=== PATIENT | male | born 1940 | race Caucasian/White ===

== ENCOUNTER 2022-05-19 16:02 | Emergency (ER) | payer MEDICARE, OTHER ==
[2022-05-19] MEDS ORDERED: Sodium Chloride 0.9% 10 ML Syringe FLUSH PRN (16:13)
[2022-05-19 17:02] LABS: ANION GAP 10.6 mEq/L (7-13)
== END 2022-05-19 19:10 | disposition home or self-care (01) ==
LOC: DL.ED 16:02
DX: B34.9 Viral infection, unspecified (principal); I10 Essential (primary) hypertension; Z20.822 Contact with and (suspected) exposure to COVID-19; Z79.82 Long term (current) use of aspirin; Z79.899 Other long term (current) drug therapy; Z90.49 Acquired absence of other specified parts of digestive tract
CPT/HCPCS: 36415; 71045; 80053; 80162; 81001; 82607; 83605; 83735; 83880; 84100; 84443; 84484; 85025; 85610; 86140; 87040; 87086; 93005; 99284; J3490; U0002

== ENCOUNTER 2023-03-03 08:57 | Emergency (ER) | payer MEDICARE, OTHER ==
[2023-03-03] MEDS ORDERED: fentaNYL 100 MCG/2 ML SDV IVPUSH ONE (09:47)
[2023-03-03] MEDS ORDERED: Sodium Chloride 0.9% 10 ML Syringe FLUSH PRN (09:47)
[2023-03-03] MEDS ORDERED: Ondansetron 4 MG/2 ML SDV IV ONE (09:47)
[2023-03-03] MEDS ORDERED: Sodium Chloride 0.9% 1,000 ML IV SCH (10:00)
[2023-03-03] MEDS ORDERED: Ketorolac 30 MG/ML SDV IVPUSH ONE (11:06)
[2023-03-03] MEDS ORDERED: Acetaminophen 500 MG Tab PO ONE (11:07)
== END 2023-03-03 11:22 | disposition home or self-care (01) ==
LOC: DL.ED 08:57
DX: S43.004A Unspecified dislocation of right shoulder joint, initial encounter (principal); E78.00 Pure hypercholesterolemia, unspecified; I10 Essential (primary) hypertension; E03.9 Hypothyroidism, unspecified; I25.10 Atherosclerotic heart disease of native coronary artery without angina pectoris; Z79.82 Long term (current) use of aspirin; Z79.899 Other long term (current) drug therapy; W05.1XXA Fall from non-moving nonmotorized scooter, initial encounter
CPT/HCPCS: 01620; 23650; 23655; 29125; 73020; 73030; 73060; 96374; 96375; 99152; 99153; 99283; A9270; J1885; J2405; J3010; J7030; J3490

== ENCOUNTER 2023-08-15 12:01 | Emergency (ER) | payer MEDICARE, OTHER ==
[2023-08-15 12:31] LABS: BASOPHILS PERCENT AUTO 0.3 % (0.0-1.0); EOSINOPHILS PERCENT AUTO 0.8 % (1.0-3.0); HEMATOCRIT 30.2 % (40.0-54.0); HEMOGLOBIN 10.4 g/dL (14.0-18.0); LYMPHOCYTES PERCENT AUTO 11.2 % (20.5-50.1); MEAN CORPUSCULAR HEMOGLOBIN 37.8 pg (27.0-34.0); MEAN CORPUSCULAR HGB CONC 34.4 g/dL (33.0-35.0); MEAN CORPUSCULAR VOLUME 109.8 fL (80-100); MONOCYTES PERCENT AUTO 5.7 % (2-8); PLATELET COUNT,PLT 151 10^3/uL (150-450); RED BLOOD CELL COUNT 2.75 10^6/uL (4.6-6.2); WHITE BLOOD CELL COUNT,WBC 9.2 10^3/uL (5.0-10.0)
[2023-08-15] MEDS: Ondansetron 4 MG/2 ML SDV IVPUSH ONE (12:32)
[2023-08-15] MEDS: Morphine 4 MG/ML Syringe IVPUSH ONE (12:32)
[2023-08-15 12:48] LABS: A/G RATIO 1.3; ALANINE AMINOTRANSFERASE,ALT 21 U/L (16-63); ALBUMIN 3.9 g/dL (3.4-5.0); ALKALINE PHOSPHATASE 87 U/L (46-116); ANION GAP 14.9 mEq/L (7-13); ASPARTATE AMNIOTRANSFERASE,AST 22 U/L (15-37); BILIRUBIN TOTAL 1.2 mg/dL (0.2-1.0); BLOOD UREA NITROGEN,BUN 14 mg/dL (7-18); BUN/CREATININE RATIO 21.2 (No establ ref range); CALCIUM 8.7 mg/dL (8.5-10.1); CARBON DIOXIDE,CO2 28 mmol/L (21-32); CHLORIDE,CL 103 mmol/L (98-107); CREATININE 0.66 mg/dL (0.70-1.30); ESTIMATED GFR 92 mL/min (>=60); GLUCOSE RANDOM 104 mg/dL (70-99); POTASSIUM,K 3.9 mmol/L (3.5-5.1); SODIUM,NA 142 mmol/L (136-145)
[2023-08-15] MEDS: Sodium Chloride 0.9% 1,000 ML IV ONE (13:42)
== END 2023-08-15 14:35 | disposition critical access hospital (66) ==
LOC: DL.ED 12:01
DX: S72.001A Fracture of unspecified part of neck of right femur, initial encounter for closed fracture (principal); I25.10 Atherosclerotic heart disease of native coronary artery without angina pectoris; E78.00 Pure hypercholesterolemia, unspecified; I10 Essential (primary) hypertension; E03.9 Hypothyroidism, unspecified; Z79.82 Long term (current) use of aspirin
CPT/HCPCS: 36415; 80053; 85025; 93005; 93010; 96361; 96374; 96375; 99284; 99285-25; J2270; J2405; J7030

== ENCOUNTER 2023-12-05 15:27 | Inpatient (IN) | payer MEDICARE, OTHER ==
[2023-12-05] MEDS: Lactated Ringers 1,000 ML IV ONE ×2 (16:36→18:19)
[2023-12-05] MEDS: Piperacillin/Tazobactam 4.5 GM in Sodium Chloride 0.9% 100 ML IV ONE (16:36)
[2023-12-05 16:47] LABS: BASOPHILS PERCENT AUTO 0.3 % (0.0-1.0); EOSINOPHILS PERCENT AUTO 0.1 % (1.0-3.0); HEMOGLOBIN 9.3 g/dL (14.0-18.0); LYMPHOCYTES PERCENT AUTO 2.4 % (20.5-50.1); MEAN CORPUSCULAR HEMOGLOBIN 38.4 pg (27.0-34.0); MEAN CORPUSCULAR HGB CONC 33.2 g/dL (33.0-35.0); MEAN CORPUSCULAR VOLUME 115.7 fL (80-100); MONOCYTES PERCENT AUTO 6.1 % (2-8); NEUTROPHILS PERCENT AUTO 91.1 % (42.2-75.2); PLATELET COUNT,PLT 145 10^3/uL (150-450); RED BLOOD CELL COUNT 2.42 10^6/uL (4.6-6.2); WHITE BLOOD CELL COUNT,WBC 14.6 10^3/uL (5.0-10.0)
[2023-12-05 16:55] LABS: A/G RATIO 1.3; ANION GAP 14.3 mEq/L (7-13); BILIRUBIN TOTAL 2.4 mg/dL (0.2-1.0); BUN/CREATININE RATIO 16.7 (No establ ref range); C-REACTIVE PROTEIN 4.84 ng/dL (<=0.50); CALCIUM 8.1 mg/dL (8.5-10.1); CREATININE 0.84 mg/dL (0.70-1.30); EST CRCL DRUG DOSING (CG) 59.07 mL/min; POTASSIUM,K 4.3 mmol/L (3.5-5.1); PROTEIN TOTAL,TP 7.1 g/dL (6.4-8.2)
[2023-12-05 16:58] LABS: LACTIC ACID 1.5 mmol/L (0.4-2.0)
[2023-12-05] MEDS: Sodium Chloride 0.9% 10 ML Syringe FLUSH PRN (17:45)
[2023-12-05] MEDS: HYDROmorphone 0.5 MG/0.5 ML Syringe IVPUSH ONE (17:45)
[2023-12-05] MEDS: Ondansetron 4 MG/2 ML SDV IV ONE (17:45)
[2023-12-05] MEDS: methylPREDNISolone Sodium Succinate 125 MG/2 ML SDV IVPUSH ONE (17:45)
[2023-12-05 17:51] LABS: APPEARANCE,URINE CLEAR (CLEAR); BILIRUBIN,URINE NEGATIVE (NEGATIVE); COLOR,URINE YELLOW (YELLOW); GLUCOSE,URINE NEGATIVE (NEGATIVE); KETONES,URINE NEGATIVE (NEGATIVE); LEUKOCYTE ESTERASE,URINE NEGATIVE (NEGATIVE); NITRITE,URINE NEGATIVE (NEGATIVE); OCCULT BLOOD,URINE NEGATIVE (NEGATIVE); PH,URINE 5.5 (5.0-9.0); PROTEIN,URINE NEGATIVE (NEGATIVE); UROBILINOGEN,URINE 0.2 mg/dL (0.2-1.0)
[2023-12-05] MEDS ORDERED: Ondansetron 4 MG/2 ML SDV IVPUSH PRN (18:25)
[2023-12-05] MEDS ORDERED: Albuterol/Ipratropium 3.0-0.5 MG/3 ML Neb Soln NEB PRN (18:25)
[2023-12-05] MEDS ORDERED: Acetaminophen 325 MG Tab PO PRN (18:25)
[2023-12-05] MEDS ORDERED: methylPREDNISolone Sodium Succinate 40 MG/1 ML SDV IVPUSH SCH (18:45)
[2023-12-05] MEDS ORDERED: Lactated Ringers 1,000 ML IV SCH (19:00)
[2023-12-05] MEDS: Zolpidem 5 MG Tab PO PRN (20:55)
[2023-12-06] MEDS: Piperacillin/Tazobactam 3.375 GM in Sodium Chloride 0.9% 100 ML IV SCH (00:09)
[2023-12-06] MEDS: methylPREDNISolone Sodium Succinate 40 MG/1 ML SDV IVPUSH SCH (00:09)
[2023-12-06 06:44] LABS: HEMATOCRIT 26.3 % (40.0-54.0); HEMOGLOBIN 8.6 g/dL (14.0-18.0); MEAN CORPUSCULAR HEMOGLOBIN 38.1 pg (27.0-34.0); MEAN CORPUSCULAR HGB CONC 32.7 g/dL (33.0-35.0); MEAN CORPUSCULAR VOLUME 116.4 fL (80-100); PLATELET COUNT,PLT 119 10^3/uL (150-450); RED BLOOD CELL COUNT 2.26 10^6/uL (4.6-6.2); WHITE BLOOD CELL COUNT,WBC 10.5 10^3/uL (5.0-10.0)
[2023-12-06 06:46] LABS: ANION GAP 13.4 mEq/L (7-13); CALCIUM 8.3 mg/dL (8.5-10.1); CREATININE 0.9 mg/dL (0.70-1.30); EST CRCL DRUG DOSING (CG) 55.14 mL/min; POTASSIUM,K 4.4 mmol/L (3.5-5.1)
[2023-12-06 07:32] LABS: BASOPHILS PERCENT AUTO 0.3 % (0.0-1.0); LYMPHOCYTES PERCENT AUTO 2.9 % (20.5-50.1); MONOCYTES PERCENT AUTO 0.7 % (2-8); NEUTROPHILS PERCENT AUTO 96.1 % (42.2-75.2)
[2023-12-06 07:33] LABS: BAND PERCENT MAN 6 %; SEG NEUTROPHILS PERCENT MAN 90 % (42-75)
[2023-12-06 07:34] LABS: LYMPHOCYTES PERCENT MAN 3 % (20-50)
[2023-12-06] MEDS ORDERED: Piperacillin/Tazobactam 4.5 GM in Sodium Chloride 0.9% 100 ML IV SCH (08:15)
[2023-12-06] MEDS: Enoxaparin 40 MG/0.4 ML Syringe SUBCUT SCH (08:39)
[2023-12-06] MEDS: HYDROmorphone 0.5 MG/0.5 ML Syringe IVPUSH PRN (08:47)
[2023-12-06] MEDS: Piperacillin/Tazobactam 4.5 GM in Sodium Chloride 0.9% 100 ML IV SCH (14:11)
[2023-12-06] MEDS ORDERED: Levothyroxine 150 MCG Tab PO SCH (14:45)
[2023-12-07 06:36] LABS: BASOPHILS PERCENT AUTO 0.2 % (0.0-1.0); HEMATOCRIT 23.6 % (40.0-54.0); HEMOGLOBIN 7.7 g/dL (14.0-18.0); MEAN CORPUSCULAR HEMOGLOBIN 37.9 pg (27.0-34.0); MEAN CORPUSCULAR HGB CONC 32.6 g/dL (33.0-35.0); MEAN CORPUSCULAR VOLUME 116.3 fL (80-100); MONOCYTES PERCENT AUTO 1.5 % (2-8); NEUTROPHILS PERCENT AUTO 93.3 % (42.2-75.2); PLATELET COUNT,PLT 89 10^3/uL (150-450); RED BLOOD CELL COUNT 2.03 10^6/uL (4.6-6.2); WHITE BLOOD CELL COUNT,WBC 4.8 10^3/uL (5.0-10.0)
[2023-12-07 06:53] LABS: ANION GAP 13.1 mEq/L (7-13); CALCIUM 8.2 mg/dL (8.5-10.1); CREATININE 0.87 mg/dL (0.70-1.30); EST CRCL DRUG DOSING (CG) 57.04 mL/min; POTASSIUM,K 4.1 mmol/L (3.5-5.1)
[2023-12-07] MEDS ORDERED: DIPYRIDAMOLE PO SCH (09:00)
[2023-12-07] MEDS ORDERED: [UNRECOGNIZED DRUG - OTHER] PO SCH (09:00)
[2023-12-07] MEDS ORDERED: Ferrous Sulfate 325 MG Tab PO SCH (09:00)
[2023-12-07] MEDS ORDERED: ASPIRIN PO SCH (09:00)
[2023-12-07] MEDS: atorvaSTATin 10 MG Tab PO SCH (09:31)
[2023-12-07] MEDS: Aspirin 81 MG Tab.EC PO SCH (09:32)
[2023-12-07] MEDS: Digoxin 250 MCG Tab PO SCH (09:32)
[2023-12-07] MEDS: Diltiazem 180 MG Cap.CD PO SCH (09:32)
[2023-12-07] MEDS: Diltiazem 120 MG Cap.CD PO SCH (09:33)
[2023-12-07] MEDS: Folic Acid 1 MG Tab PO SCH (09:33)
[2023-12-07] MEDS: Ferrous Sulfate 325 MG Tab PO SCH (09:36)
[2023-12-07] MEDS: Tamsulosin 0.4 MG Cap.ER PO SCH (09:37)
[2023-12-07] MEDS: Pantoprazole 40 MG Tab.CR PO SCH (09:37)
[2023-12-08 06:38] LABS: HEMOGLOBIN 7.9 g/dL (14.0-18.0); MEAN CORPUSCULAR HEMOGLOBIN 38.5 pg (27.0-34.0); MEAN CORPUSCULAR HGB CONC 32.9 g/dL (33.0-35.0); MEAN CORPUSCULAR VOLUME 117.1 fL (80-100); PLATELET COUNT,PLT 76 10^3/uL (150-450); RED BLOOD CELL COUNT 2.05 10^6/uL (4.6-6.2); WHITE BLOOD CELL COUNT,WBC 3.2 10^3/uL (5.0-10.0)
[2023-12-08 06:44] LABS: BASOPHILS PERCENT AUTO 0.3 % (0.0-1.0); LYMPHOCYTES PERCENT AUTO 4.4 % (20.5-50.1); MONOCYTES PERCENT AUTO 2.5 % (2-8); NEUTROPHILS PERCENT AUTO 92.8 % (42.2-75.2)
[2023-12-08 07:33] LABS: LYMPHOCYTES PERCENT MAN 5 % (20-50); MONOCYTES PERCENT MAN 2 % (2-8); SEG NEUTROPHILS PERCENT MAN 93 % (42-75)
[2023-12-08 07:40] LABS: CALCIUM 8.1 mg/dL (8.5-10.1); CREATININE 0.88 mg/dL (0.70-1.30); EST CRCL DRUG DOSING (CG) 56.39 mL/min; POTASSIUM,K 4.1 mmol/L (3.5-5.1)
[2023-12-08] MEDS ORDERED: Take Home: Amoxicillin/Clavulanate K 875-125 MG Tab, 6 Tab Pack PO ONE (08:32)
[2023-12-08 08:47] LABS: ANION GAP 11.1 mEq/L (7-13)
== END 2023-12-08 11:10 | disposition home or self-care (01) | DRG 386 ==
LOC: DL.ED 15:27 → DL.MS 17:33
PROVIDERS: ADMIT Internal Medicine; ATTEND Internal Medicine
DX: K51.819 Other ulcerative colitis with unspecified complications (principal); A09 Infectious gastroenteritis and colitis, unspecified; J90 Pleural effusion, not elsewhere classified; Z66 Do not resuscitate; H91.90 Unspecified hearing loss, unspecified ear; H54.7 Unspecified visual loss; I48.91 Unspecified atrial fibrillation; I25.10 Atherosclerotic heart disease of native coronary artery without angina pectoris; E78.00 Pure hypercholesterolemia, unspecified; I10 Essential (primary) hypertension; E03.9 Hypothyroidism, unspecified; M19.90 Unspecified osteoarthritis, unspecified site; M10.9 Gout, unspecified; N40.0 Benign prostatic hyperplasia without lower urinary tract symptoms; N32.89 Other specified disorders of bladder; D64.9 Anemia, unspecified; Z98.890 Other specified postprocedural states; Z79.899 Other long term (current) drug therapy; Z79.82 Long term (current) use of aspirin; Z90.49 Acquired absence of other specified parts of digestive tract; Z95.0 Presence of cardiac pacemaker; Z86.73 Personal history of transient ischemic attack (TIA), and cerebral infarction without residual deficits
CPT/HCPCS: 36415; 80053; 80162; 83605; 83690; 84145; 85025; 86140; 87040 ×2; 96365; 99284; 99285; J2543; J3490; J7120; 51798; 80048; 81003; 97161-GP; 97165-GO; 99223; 99232; 99233; 99239; A9270-GY; J1170; J1650; J2405; J2920; J2930

== ENCOUNTER 2024-01-22 20:39 | Emergency (ER) | payer MEDICARE, OTHER | END 2024-01-22 22:50 | disposition home or self-care (01) | LOC: DL.ED 20:39 | DX: S92.101A Unspecified fracture of right talus, initial encounter for closed fracture (principal); I10 Essential (primary) hypertension; I25.10 Atherosclerotic heart disease of native coronary artery without angina pectoris; I48.91 Unspecified atrial fibrillation; E78.00 Pure hypercholesterolemia, unspecified; Z79.82 Long term (current) use of aspirin; Z79.890 Hormone replacement therapy; Z79.899 Other long term (current) drug therapy; Z86.73 Personal history of transient ischemic attack (TIA), and cerebral infarction without residual deficits; Z90.49 Acquired absence of other specified parts of digestive tract | CPT/HCPCS: 73610-RT; 99283 ==

== ENCOUNTER 2024-06-20 16:33 | Emergency (ER) | payer MEDICARE, OTHER ==
[2024-06-20] MEDS ORDERED: Sodium Chloride 0.9% 10 ML Syringe FLUSH PRN (17:22)
[2024-06-20] MEDS: Sodium Chloride 0.9% 500 ML IV SCH (17:35)
[2024-06-20 17:37] LABS: HEMATOCRIT 26.6 % (40.0-54.0); MEAN CORPUSCULAR HEMOGLOBIN 38.3 pg (27.0-34.0); MEAN CORPUSCULAR HGB CONC 33.8 g/dL (33.0-35.0); MEAN CORPUSCULAR VOLUME 113.2 fL (80-100); PLATELET COUNT,PLT 153 10^3/uL (150-450); RED BLOOD CELL COUNT 2.35 10^6/uL (4.6-6.2); WHITE BLOOD CELL COUNT,WBC 8.7 10^3/uL (5.0-10.0)
[2024-06-20] MEDS: Ondansetron 4 MG/2 ML SDV IVPUSH ONE (17:37)
[2024-06-20 17:38] LABS: BASOPHILS PERCENT AUTO 0.5 % (0.0-1.0); EOSINOPHILS PERCENT AUTO 0.6 % (1.0-3.0); LYMPHOCYTES PERCENT AUTO 12.3 % (20.5-50.1); MONOCYTES PERCENT AUTO 6.3 % (2-8); NEUTROPHILS PERCENT AUTO 80.3 % (42.2-75.2)
[2024-06-20 17:54] LABS: ALANINE AMINOTRANSFERASE,ALT 34 U/L (16-63); ALBUMIN 3.4 g/dL (3.4-5.0); ALKALINE PHOSPHATASE 108 U/L (46-116); ANION GAP 13.4 mEq/L (7-13); ASPARTATE AMNIOTRANSFERASE,AST 21 U/L (15-37); BLOOD UREA NITROGEN,BUN 16 mg/dL (7-18); BUN/CREATININE RATIO 15.7 (No establ ref range); C-REACTIVE PROTEIN 2.96 ng/dL (<=0.50); CALCIUM 8.5 mg/dL (8.5-10.1); CARBON DIOXIDE,CO2 27 mmol/L (21-32); CHLORIDE,CL 102 mmol/L (98-107); CREATININE 1.02 mg/dL (0.70-1.30); EOSINOPHILS PERCENT MAN 2 % (1-3); GLUCOSE RANDOM 171 mg/dL (70-99); LYMPHOCYTES PERCENT MAN 11 % (20-50); MAGNESIUM 1.8 mg/dL (1.8-2.4); MONOCYTES PERCENT MAN 5 % (2-8); POTASSIUM,K 3.4 mmol/L (3.5-5.1); PROTEIN TOTAL,TP 6.7 g/dL (6.4-8.2); SEG NEUTROPHILS PERCENT MAN 82 % (42-75); SODIUM,NA 139 mmol/L (136-145)
[2024-06-20 17:55] LABS: ESTIMATED GFR 72 mL/min (>=60)
[2024-06-20 17:59] LABS: LACTIC ACID 1.4 mmol/L (0.4-2.0)
[2024-06-20] MEDS: Iopamidol 612 MG/ML 100 ML Bottle IVPUSH ONE (18:12)
[2024-06-20] MEDS ORDERED: Take Home: Potassium Chloride 10 MEQ Tab, 10 Tab Pack PO ONE (19:30)
[2024-06-20] MEDS ORDERED: Take Home: Ondansetron 4 MG Tab.DIS, 5 Tab Pack PO ONE (19:30)
== END 2024-06-20 19:56 | disposition home or self-care (01) ==
LOC: DL.ED 16:33
DX: K52.9 Noninfective gastroenteritis and colitis, unspecified (principal); R79.82 Elevated C-reactive protein (CRP); I25.10 Atherosclerotic heart disease of native coronary artery without angina pectoris; I48.91 Unspecified atrial fibrillation; I10 Essential (primary) hypertension; E78.00 Pure hypercholesterolemia, unspecified; M19.90 Unspecified osteoarthritis, unspecified site; E03.9 Hypothyroidism, unspecified; Z86.73 Personal history of transient ischemic attack (TIA), and cerebral infarction without residual deficits; Z90.49 Acquired absence of other specified parts of digestive tract; Z79.82 Long term (current) use of aspirin; Z79.890 Hormone replacement therapy; Z79.52 Long term (current) use of systemic steroids; Z79.899 Other long term (current) drug therapy
CPT/HCPCS: 74177; 80053; 83605; 83735; 85025; 86140; 87428; 96361; 96374; 99284; J2405; J7040; Q9967

== ENCOUNTER 2024-06-24 23:08 | Emergency (ER) | payer MEDICARE, OTHER ==
[2024-06-24] MEDS ORDERED: Sodium Chloride 0.9% 10 ML Syringe FLUSH PRN (23:19)
[2024-06-24 23:33] LABS: HEMATOCRIT 26.5 % (40.0-54.0); HEMOGLOBIN 8.6 g/dL (14.0-18.0); MEAN CORPUSCULAR HEMOGLOBIN 37.1 pg (27.0-34.0); MEAN CORPUSCULAR HGB CONC 32.5 g/dL (33.0-35.0); MEAN CORPUSCULAR VOLUME 114.2 fL (80-100); PLATELET COUNT,PLT 192 10^3/uL (150-450); RED BLOOD CELL COUNT 2.32 10^6/uL (4.6-6.2); WHITE BLOOD CELL COUNT,WBC 13.8 10^3/uL (5.0-10.0)
[2024-06-24] MEDS ORDERED: Naloxone 2 MG/2 ML Syringe IVPUSH PRN (23:34)
[2024-06-24 23:36] LABS: BASOPHILS PERCENT AUTO 0.7 % (0.0-1.0); EOSINOPHILS PERCENT AUTO 0.5 % (1.0-3.0); LYMPHOCYTES PERCENT AUTO 7.4 % (20.5-50.1); MONOCYTES PERCENT AUTO 5.2 % (2-8); NEUTROPHILS PERCENT AUTO 86.2 % (42.2-75.2)
[2024-06-24] MEDS: Ondansetron 4 MG/2 ML SDV IVPUSH ONE (23:53)
[2024-06-24] MEDS: fentaNYL 100 MCG/2 ML SDV IVPUSH ONE (23:53)
[2024-06-25 00:05] LABS: BAND PERCENT MAN 8 %; EOSINOPHILS PERCENT MAN 2 % (1-3); LYMPHOCYTES PERCENT MAN 8 % (20-50); MONOCYTES PERCENT MAN 3 % (2-8); SEG NEUTROPHILS PERCENT MAN 79 % (42-75)
[2024-06-25 00:23] LABS: ANION GAP 14.4 mEq/L (7-13); BILIRUBIN TOTAL 1.4 mg/dL (0.2-1.0); FOLIC ACID 19.7 ng/mL (8.6-58.9); POTASSIUM,K 4.4 mmol/L (3.5-5.1); PROTEIN TOTAL,TP 6.8 g/dL (6.4-8.2)
[2024-06-25 00:34] LABS: A/G RATIO 1.19; ALBUMIN 3.7 g/dL (3.4-5.0); BUN/CREATININE RATIO 12.1 (No establ ref range); C-REACTIVE PROTEIN 2.84 ng/dL (<=0.50); CALCIUM 8.7 mg/dL (8.5-10.1); CREATININE 0.91 mg/dL (0.70-1.30); EST CRCL DRUG DOSING (CG) 54.53 mL/min; MAGNESIUM 1.9 mg/dL (1.8-2.4)
[2024-06-25] MEDS ORDERED: Naloxone 2 MG/2 ML Syringe IVPUSH PRN (00:49)
[2024-06-25] MEDS: Morphine 2 MG/ML SYRINGE IVPUSH ONE ×2 (00:53→02:29)
[2024-06-25] MEDS: Iopamidol 612 MG/ML 100 ML Bottle IVPUSH ONE (01:11)
[2024-06-25] MEDS: Sodium Chloride 0.9% 500 ML IV ONE (01:46)
[2024-06-25] MEDS: Ondansetron 4 MG/2 ML SDV IVPUSH ONE (02:10)
[2024-06-25] MEDS: methylPREDNISolone Sodium Succinate 40 MG/1 ML SDV IVPUSH ONE (02:11)
[2024-06-25] MEDS: Ciprofloxacin in D5W 400 MG in Premix Bag 1 BAG IV ONE (02:14)
[2024-06-25] MEDS: metroNIDAZOLE/Normal Saline 500 MG in Premix Bag 1 BAG IV ONE (02:30)
== END 2024-06-25 02:54 ==
LOC: DL.ED 23:08
DX: K51.819 Other ulcerative colitis with unspecified complications (principal); K56.600 Partial intestinal obstruction, unspecified as to cause; A09 Infectious gastroenteritis and colitis, unspecified; D72.825 Bandemia; I25.10 Atherosclerotic heart disease of native coronary artery without angina pectoris; I48.91 Unspecified atrial fibrillation; I10 Essential (primary) hypertension; E78.00 Pure hypercholesterolemia, unspecified; E03.9 Hypothyroidism, unspecified; M19.90 Unspecified osteoarthritis, unspecified site; Z90.49 Acquired absence of other specified parts of digestive tract; Z86.73 Personal history of transient ischemic attack (TIA), and cerebral infarction without residual deficits; Z79.82 Long term (current) use of aspirin; Z79.890 Hormone replacement therapy; Z79.52 Long term (current) use of systemic steroids; Z79.899 Other long term (current) drug therapy
CPT/HCPCS: 36415; 74177; 80053; 82607; 82746; 83605; 83690; 83735; 85025; 86140; 96365; 96375; 96376; 99285; 99285-25; J0744; J1836; J2270; J2405; J2919; J3010; J7040; Q9967